=== PATIENT | female | born 1995 | race Caucasian/White ===

== ENCOUNTER 2017-07-07 23:09 | Emergency (ER) | payer OTHER, SELFPAY ==
[2017-07-07 23:11] VITALS: BP 120/76; PULSE 112; RESP 17; TEMP 36.7; O2SAT 98; BMI 26.9
[2017-07-07 23:32] LABS: Bacteria 0 SEEN /hpf (None Seen); Mucous, Urine 0 SEEN /hpf (<or=2+); Red Blood Cells-Urine 0 SEEN /hpf (0-5)
[2017-07-07 23:44] LABS: Color, Urine Yellow (Yellow); Glucose, Dipstick Normal (Normal); Ketone-Dipstick Negative (Negative); Leukocyte Esterase-Dipstick 25 /ul (Negative); Nitrite-Dipstick Negative (Negative); Occult Blood-Urine 10 /ul (Negative); Protein-Dipstick Negative (Negative); Urine Bilirubin Dipstick Negative (Negative); Urine Clarity Sl. Cloudy (Clear); Urine Urobilinogen 4 mg/dl (Normal)
[2017-07-07 23:51] LABS: Squamous Epithelial Cells - UA 0-5 SEEN /hpf (5-10); White Blood Cells 0-5 SEEN /hpf (0-5)
--- NOTE | 2017-07-07 23:54 | ED.VISSUMM ---
- ER Visit Summary Date of Service: 07/07/17 Chief Complaint: Right flank pain History of Present Illness: The patient is a 21 F presenting with fairly acute onset right flank pain since this morning. It radiates anteriorly. She denies hematuria or urinary symptoms. No lower abdominal pain. Denies previous similar symptoms. No history of kidney stone or infection. Current severity is moderate. No relieving or exacerbating factors. Physical Examination: Vitals are within normal limits. She is not in distress. Neck is supple. Heart tones are regular and without murmur. Lungs are clear bilaterally. Abdomen is soft with minimal tenderness in the right mid abdomen laterally. Overlying skin looks normal. Mild flank percussion tenderness on the right. No rash. Strong pulses in all extremities. No back tenderness over her paraspinal muscles. Test Results: CT abdomen/pelvis without contrast was ordered and will be checked by the oncoming physician. Urinalysis revealed trace blood. Care is being turned over to the night physician to check CT results to rule out ureteral stone. Emergency Department Course and Treatment: [] Treatment Plan: [] Disposition: [] Impression: [] This note was generated with [employer] software. It may contain incorrect words, spelling, and punctuation that were not noted in review of the chart prior to signing <Luis Fields - Last Filed: 07/07/17 23:54> - ER Visit Summary Date of Service: 07/08/17 Chief Complaint: [Flank pain] History of Present Illness: The patient is a 21 F [] Physical Examination: [] Test Results: [] Emergency Department Course and Treatment: [She was signed out to me pending CAT scan to evaluate right flank pain. She did have a 2 mm right stone. She has had flank pain radiating to the groin. It is consistent with urolithiasis. She has blood in her urine. I do think she may have passed or is passing a small stone that did not show up on CT. She will be given a small course of [place] she will take ibuprofen at home. She was encouraged to follow-up with a primary care physician and was given precautions for which to return.] Treatment Plan: [] Disposition: [Discharge] Impression: [Right Flank pain] This note was generated with [employer] software. It may contain incorrect words, spelling, and punctuation that were not noted in review of the chart prior to signing <Latha Catalan - Last Filed: 07/08/17 02:40> ED Disposition <Luis Fields - Last Filed: 07/07/17 23:54> <Latha Catalan - Last Filed: 07/08/17 02:40> - Plan for ED Patient: Chief Complaint: Flank Pain Instructions: ED Flank Pain Uncertain Cause, ED Stone Renal W Colic Prescriptions: Hydrocodone Bitart/Apap 5-325 [[place] 5MG-325MG] 1 tablet PO Q6H PRN PRN 2 Days #7 tablet PRN Reason: Pain Referrals: [facility], Family Practice [Other] - 1 Week
--- NOTE | 2017-07-08 | CT_ITS ---
STUDY: CT ABDOMEN AND PELVIS WITHOUT CONTRAST REASON FOR EXAM: Female, 21 years old. RT FLANK/BACK PAIN RADIATION DOSAGE (If Supplied By Facility): CTDIvol = ( 7.12 ) mGy, DLP = ( 320.18 ) mGycm TECHNIQUE: Transaxial images were obtained from the dome of the diaphragm to the symphysis pubis without oral contrast, and without intravenous contrast. Sagittal and coronal images were reconstructed. Individualized dose optimization techniques were used for this CT. COMPARISON: None. FINDINGS: The visualized lung bases are unremarkable. The visualized portions of the heart are within normal limits. Normal liver. Normal gallbladder and extrahepatic biliary system. Normal spleen. Normal pancreas. Normal bilateral adrenal glands. There is a 2 mm stone in the right kidney without hydronephrosis. Normal left kidney. Normal visualized stomach. Normal small intestine. Normal colon. The appendix is visualized and appears normal. Normal abdominal aorta. Normal inferior vena cava. Normal retroperitoneum. Normal urinary bladder. Normal abdominal wall. Normal osseous structures. CT/Abdomen/Pelvis without Cont IMPRESSION: There is a 2 mm stone in the right kidney without hydronephrosis. Electronically Signed: Bam Navarro MD at 1:41 EDT Tel , Service support ,
[2017-07-08 00:19] LABS: Pregnancy, Serum, hCG Quali. NEGATIVE Negative (0-9 Nonpreg)
--- NOTE | 2017-07-08 02:37 | ED.DEP ---
ED Disposition - Plan for ED Patient: Chief Complaint: Flank Pain Instructions: ED Flank Pain Uncertain Cause, ED Stone Renal W Colic Prescriptions: Hydrocodone Bitart/Apap 5-325 [[place] 5MG-325MG] 1 tablet PO Q6H PRN PRN 2 Days #7 tablet PRN Reason: Pain Referrals: [facility], Family Practice [Other] - 1 Week
--- NOTE | 2017-07-08 02:39 | DCINST.ED_ITS ---
ED Disposition - Plan for ED Patient: Chief Complaint: Flank Pain Instructions: ED Flank Pain Uncertain Cause, ED Stone Renal W Colic Prescriptions: Hydrocodone Bitart/Apap 5-325 [[place] 5MG-325MG] 1 tablet PO Q6H PRN PRN 2 Days # 7 tablet PRN Reason: Pain Referrals: [facility], Family Practice [Other] - 1 Week
[2017-07-08 02:53] VITALS: BP 119/71; PULSE 99; O2SAT 97
== END 2017-07-08 03:03 | disposition home or self-care (01) ==
PROVIDERS: Emergency Provider Emergency Medicine
DX: R10.9 Unspecified abdominal pain (principal); N20.0 Calculus of kidney
CPT/HCPCS: 74176; 81001; 84703; 99283; A4216